=== PATIENT | female | born 1995 | race Caucasian/White ===

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

== ENCOUNTER 2017-06-11 09:55 | Emergency (ER) | payer OTHER ==
--- NOTE | 2017-06-11 11:20 | UC ---
Respiratory Complaint HPI - HPI Summary HPI Summary: ate elderberry gummies and got an itchy rash on neck and it mouth took benadryl with some relief---also has had cold symptoms for 1 week, now has itchy red rash around eye----no evidence of infection conjunctiva injection or purulent drainage - History of Current Complaint Chief Complaint: UCGeneralIllness Stated Complaint: COUGH SORE THROAT EYE ISSUE Time Seen by Provider: 06/11/17 11:14 Hx Obtained From: Patient Hx Last Menstrual Period: 05/16/17 ?: No Onset/Duration: Sudden Onset, Lasting Days, Still Present Timing: Constant Severity Initially: Moderate Severity Currently: Mild Aggravating Factors: Nothing Alleviating Factors: OTC Meds - benadryl Associated Signs And Symptoms: Positive: URI, Nasal Congestion - Allergies/Home Medications Allergies/Adverse Reactions: Allergies Allergy/AdvReac Type Severity Reaction Status Date / Time Sulfa Antibiotics Allergy Rash Verified 06/11/17 10:28 decongestants Allergy Tachycardia Uncoded 06/11/17 10:28 Home Medications: Home Medications Diphenhydramine HCl 2 tab PO Q6HR PRN 06/11/17 [History Confirmed 06/11/17] PMH/Surg Hx/FS Hx/Imm Hx Previously Healthy: Yes - Surgical History Surgical History: Yes Surgery Procedure, Year, and Place: [place] teeth. tonsilectomy 2017 - Family History Known Family History: Negative: Cardiac Disease Family History: Denies FHx of PE - Social History Occupation: Student Lives: With Family Alcohol Use: None Substance Use Type: None Smoking Status (MU): Never Smoked Tobacco - Immunization History Most Recent Influenza Vaccination: NOT UTD Review of Systems Constitutional: Negative Skin: Negative Eyes: Negative, Other - red puffy and itching around both eyes ENT: Negative, Sore Throat, Nasal Discharge Respiratory: Negative Cardiovascular: Negative Gastrointestinal: Negative Genitourinary: Negative Motor: Negative Neurovascular: Negative Musculoskeletal: Negative Neurological: Negative Psychological: Negative Is Patient Immunocompromised?: No All Other Systems Reviewed And Are Negative: Yes Physical Exam Triage Information Reviewed: Yes Appearance: Well-Appearing, No Pain Distress, Well-Nourished Vital Signs: Initial Vital Signs Temp 98.1 F 06/11/17 10:22 Pulse 81 06/11/17 10:22 Resp 18 01/18/18 10:22 BP 113/65 06/11/17 10:22 Pulse Ox 100 06/11/17 10:22 Vital Signs Reviewed: Yes Eye Exam: Normal Eyes: Positive: Conjunctiva Clear ENT Exam: Normal ENT: Positive: Normal ENT inspection, Hearing grossly normal, Pharynx normal, Nasal congestion, TMs normal, Uvula midline. Negative: Tonsillar swelling, Tonsillar exudate, Trismus, Muffled voice, Hoarse voice, Dental tenderness, Sinus tenderness Dental Exam: Normal Neck exam: Normal Neck: Positive: Supple, Nontender, No Lymphadenopathy Respiratory Exam: Normal Respiratory: Positive: Chest non-tender, Lungs clear, Normal breath sounds, No respiratory distress, No accessory muscle use Cardiovascular Exam: Normal Cardiovascular: Positive: RRR, No Murmur, Pulses Normal, Brisk Capillary Refill Musculoskeletal Exam: Normal Musculoskeletal: Positive: Strength Intact, ROM Intact, No Edema Neurological Exam: Normal Neurological: Positive: Alert, Muscle Tone Normal Psychological Exam: Normal Skin Exam: Normal UC Diagnostic Evaluation - Laboratory O2 Sat by Pulse Oximetry: 100 Diagnostic Studies Comment: RST (-) Respiratory Course/Dx - Course Course Of Treatment: Zyrtec, Pepcid during the day may take Benadryl prn at night cool compresses for eye follow at [place] pr - Differential Dx/Diagnosis Provider Diagnoses: Allergy Response Discharge - Discharge Plan Condition: Stable Disposition: HOME Patient Education Materials: Famotidine (By mouth), Cetirizine (By mouth), Upper Respiratory Infection (ED), Viral Syndrome (ED), General Allergic Reaction (ED) Referrals: [facility] [Outside] - If Needed
[2017-06-11] MEDS ORDERED: Famotidine TAB 40 MG(NF) 40 MG TAB PO PRN (12:02)
[2017-06-11] MEDS ORDERED: Famotidine TAB* 20 MG PO ONE (12:14)
[2017-06-11 12:25] VITALS: BP 117/65
== END 2017-06-11 12:22 | disposition home or self-care (01) ==
LOC: UCEAST 09:55
DX: T78.40XA Allergy, unspecified, initial encounter (principal); X58.XXXA Exposure to other specified factors, initial encounter; H57.8 Other specified disorders of eye and adnexa
CPT/HCPCS: 87651; 99212; A9270-GY; G0463

== ENCOUNTER 2019-06-23 04:45 | Emergency (ER) | payer OTHER ==
--- NOTE | 2019-06-23 05:39 | ED ---
Throat Pain/Nasal Congestion - HPI Summary HPI Summary: Patient is a 23 y/o F presenting to the ED for a chief complaint of left ear pain that began on 06/17/19. Patient states that at that time, she had a sore throat as well as left ear pain. She later began to have nasal congestion, cough , chills, generalized body aches, and nausea. On 06/22/19, patient was seen by her PCP and prescribed Amoxicillin for an ear infection. She has not yet started taking the antibiotic. At approximately 04:00 on 06/23/19, patient states feeling "fluid" in her ear, tinnitus, and worsening ear pain. She also had abdominal pain that has since resolved. Patient denies fever or rash. Allergies noted. - History of Current Complaint Chief Complaint: EDUpperRespComplaint Time Seen by Provider: 06/23/19 05:27 Hx Obtained From: Patient Onset/Duration: Sudden Onset, Lasting Days, Still Present Severity: Moderate - Allergies/Home Medications Allergies/Adverse Reactions: Allergies Allergy/AdvReac Type Severity Reaction Status Date / Time MS Sulfa Antibiotics Allergy Rash Verified 06/11/17 10:28 [Sulfa Antibiotics] peanut Allergy Anaphylatic Verified 06/23/19 04:56 Shock peanut oil Allergy Anaphylatic Verified 06/23/19 04:56 Shock Tree Nuts Allergy Anaphylatic Verified 06/23/19 04:56 Shock decongestants Allergy Tachycardia Uncoded 06/11/17 10:28 PMH/Surg Hx/FS Hx/Imm Hx Previously Healthy: Yes Endocrine/Hematology History: Denies: Hx Diabetes Respiratory History: Reports: Hx Asthma - exercise-induced GI History: Reports: Hx Gastroesophageal Reflux Disease Sensory History: Denies: Hx Legally Blind, Hx Deafness Opthamlomology History: Denies: Hx Legally Blind EENT History: Denies: Hx Deafness - Surgical History Surgical History: Yes Surgery Procedure, Year, and Place: [place] teeth. tonsilectomy 2017 Infectious Disease History: No Infectious Disease History: Reports: Traveled Outside the [place] in Last 30 Days - Family History Known Family History: Negative: Cardiac Disease Family History: Denies FHx of PE - Social History Occupation: Student Alcohol Use: None Hx Substance Use: No Substance Use Type: Reports: None Hx Tobacco Use: No Smoking Status (MU): Never Smoked Tobacco Review of Systems Positive: Chills. Negative: Fever Positive: Other - Positive nasal congestion and tinnitus in the left ear Positive: Cough Positive: Abdominal Pain - Resolved, Nausea Positive: Myalgia - Generalized body aches Negative: Rash All Other Systems Reviewed And Are Negative: Yes Physical Exam - Summary Physical Exam Summary: Constitutional: Well-developed, Well-nourished, Alert. (-) Distressed Skin: Warm, Dry HENT: Normocephalic; Atraumatic. Right TM with an effusion and minimal bulging. Left TM is very erythematous with an effusion and bulging. Eyes: Conjunctiva normal Neck: Musculoskeletal ROM normal neck. (-) JVD, (-) Stridor, (-) Tracheal deviation Cardio: Rhythm regular, rate normal, Heart sounds normal; Intact distal pulses; The pedal pulses are 2+ and symmetric. Radial pulses are 2+ and symmetric. (-) Murmur Pulmonary/Chest wall: Effort normal. (-) Respiratory distress, (-) Wheezes, (-) Rales Abd: Soft, (-) tenderness, (-) Distension, (-) Guarding, (-) Rebound Musculoskeletal: (-) Edema Lymph: (-) Cervical adenopathy Neuro: Alert, Oriented x3 Psych: Mood and affect Normal Triage Information Reviewed: Yes Vital Signs On Initial Exam: Initial Vitals Temp Pulse Resp BP Pulse Ox 97.3 F 78 15 133/91 99 06/23/19 04:53 06/23/19 04:53 06/23/19 04:53 06/23/19 04:53 06/23/19 04:53 Vital Signs Reviewed: Yes Procedures - Sedation Patient Received Moderate/Deep Sedation with Procedure: No Diagnostics - Vital Signs Vital Signs Temp Pulse Resp BP Pulse Ox 06/23/19 04:53 97.3 F 78 15 133/91 99 - Laboratory Lab Statement: Any lab studies that have been ordered have been reviewed, and results considered in the medical decision making process. EENT Course/Dx - Course Course Of Treatment: Patient is a 23 y/o F presenting to the ED for a chief complaint of left ear pain that began on 06/17/19. Patient states that at that time, she had a sore throat as well as left ear pain. She later began to have nasal congestion, cough, chills, generalized body aches, and nausea. On 06/22/19 , patient was seen by her PCP and prescribed Amoxicillin for an ear infection. She has not yet started taking the antibiotic. At approximately 04:00 on , patient states feeling "fluid" in her ear, tinnitus, and worsening ear pain. She also had abdominal pain that has since resolved. Patient denies fever or rash. Allergies noted. On exam, right TM with an effusion and minimal bulging. Left TM is very erythematous with an effusion and bulging. In the ED course, patient was given Rocephin 1000 mg IM, Toradol 30 mg IM, and lidocaine 1 % 3.6 ml IM. Patient will be discharged with a diagnosis of ear infection. Follow up with PCP in 1 day. - Diagnoses Provider Diagnoses: Ear infection Discharge ED - Sign-Out/Discharge Documenting (check all that apply): Patient Departure - Discharge - Discharge Plan Condition: Stable Disposition: HOME Prescriptions: Fluticasone NASAL SPRAY 50MCG* [Flonase NASAL SPRAY 50MCG*] 2 spray BOTH NARES DAILY #1 btl Patient Education Materials: Ear Infection (ED) Print Language: GABONESE Forms: *School Release Referrals: [facility] [Outside] [facility] [place] - Dariusz ROBLEDO [Z.BUSINESS, APPLICATION, OTHER] - Additional Instructions: Take the antibiotics as prescribed. Follow-up with your primary care doctor. - Billing Disposition and Condition Condition: STABLE Disposition: Home - Attestation Statements Document Initiated by Kristina: Yes Documenting Scribe: Mary Barrios Provider For Whom Kristina is Documenting (Include Credential): Zeenat Good MD Scribe Attestation: IMary scribed for Zeenat Jain MD on 06/23/19 at 0711. Scribe Documentation Reviewed: Yes Provider Attestation: The documentation as recorded by the Mary meza accurately reflects the service I personally performed and the decisions made by me, Zeenat Jain MD Status of Scribe Document: Viewed
[2019-06-23] MEDS ORDERED: Lidocaine 1% MPF ** 5 ML VIAL IM ONE (05:40)
[2019-06-23] MEDS ORDERED: cefTRIAXone VIAL(*) 1,000 MG VIAL IM ONE (05:40)
[2019-06-23] MEDS ORDERED: Ketorolac INJ* 30 MG/ML 1 ML VIAL IM ONE (05:41)
[2019-06-23 06:18] VITALS: BP 130/88
== END 2019-06-23 06:26 | disposition home or self-care (01) ==
LOC: ED 04:45
DX: H66.92 Otitis media, unspecified, left ear (principal); J45.909 Unspecified asthma, uncomplicated; K21.9 Gastro-esophageal reflux disease without esophagitis; Z88.2 Allergy status to sulfonamides; Z88.8 Allergy status to other drugs, medicaments and biological substances
CPT/HCPCS: 96372; 99282; J0696; J1885